=== PATIENT | female | born 1955 | race Caucasian/White ===

== ENCOUNTER 2023-01-17 07:41 | Outpatient (CLI) | payer OTHER | END 2023-01-17 07:43 | disposition home or self-care (01) | LOC: TOM 07:41 | PROVIDERS: ATTEND Internal Medicine Gastroenterology | DX: R19.5 Other fecal abnormalities (principal); K56.609 Unspecified intestinal obstruction, unspecified as to partial versus complete obstruction; Z12.11 Encounter for screening for malignant neoplasm of colon ==